=== PATIENT | male | born 1945 | race Caucasian/White ===

== ENCOUNTER 2016-09-28 19:38 | Emergency (ER) | payer MEDICARE ==
[~2016-09-28 19:38] MED LIST: MUCINEX1200 MG PO
== END 2016-09-28 21:03 | disposition short-term general hospital (02) ==
LOC: ED 19:38
DX: I21.4 Non-ST elevation (NSTEMI) myocardial infarction (principal); I50.9 Heart failure, unspecified; F17.210 Nicotine dependence, cigarettes, uncomplicated; Z79.82 Long term (current) use of aspirin
CPT/HCPCS: J1644; J2270; J2405

== ENCOUNTER 2016-10-30 14:59 | Outpatient (RCR) | payer MEDICARE ==
[2016-09-28 21:03] VITALS: BP 150/102
[2016-11-02] MEDS ORDERED: CLOPIDOGREL (13:25)
[2016-11-02] MEDS ORDERED: IPRATROPIUM BROM3 M1 IH (13:26)
[2016-11-02] MEDS ORDERED: ZESTRIL2.5 M1 PO (13:26)
[2016-11-02] MEDS ORDERED: PEPCID 20MG TAB20 MG PO (13:26)
[2016-11-02] MEDS ORDERED: METOPROLOL SUCC50 M2 PO (13:26)
[2016-11-02] MEDS ORDERED: ASPIRIN E.C. 8181 MG PO (13:26)
== END 2017-01-28 | disposition home or self-care (01) ==
LOC: CARDREHAB → EDSTATUS 15:05
DX: Z48.812 Encounter for surgical aftercare following surgery on the circulatory system (principal); I21.4 Non-ST elevation (NSTEMI) myocardial infarction; Z95.5 Presence of coronary angioplasty implant and graft

== ENCOUNTER 2016-11-02 13:14 | Emergency (ER) | payer MEDICARE ==
[2016-11-02] MEDS ORDERED: CLOPIDOGREL (13:25)
[2016-11-02] MEDS ORDERED: IPRATROPIUM BROM3 M1 IH (13:26)
[2016-11-02] MEDS ORDERED: ASPIRIN E.C. 8181 MG PO (13:26)
[2016-11-02] MEDS ORDERED: METOPROLOL SUCC50 M2 PO (13:26)
[2016-11-02] MEDS ORDERED: PEPCID 20MG TAB20 MG PO (13:26)
[2016-11-02] MEDS ORDERED: ZESTRIL2.5 M1 PO (13:26)
[2016-11-02 14:34] VITALS: BP 100/49
== END 2016-11-02 14:30 | disposition home or self-care (01) ==
LOC: ED 13:14
DX: I48.91 Unspecified atrial fibrillation (principal); I25.10 Atherosclerotic heart disease of native coronary artery without angina pectoris; Z91.14 Patient's other noncompliance with medication regimen; F17.210 Nicotine dependence, cigarettes, uncomplicated; E11.9 Type 2 diabetes mellitus without complications; I25.2 Old myocardial infarction; J44.9 Chronic obstructive pulmonary disease, unspecified; I50.9 Heart failure, unspecified

== ENCOUNTER 2017-02-01 08:00 | Outpatient (RCR) | payer MEDICARE ==
[~2017-02-01 08:00] MED LIST changes: +ASPIRIN E.C. 8181 MG PO; +CLOPIDOGREL; +IPRATROPIUM BROM3 M1 IH; +METOPROLOL SUCC50 M2 PO; +PEPCID 20MG TAB20 MG PO; +ZESTRIL2.5 M1 PO
== END 2017-05-02 | disposition home or self-care (01) ==
LOC: CARDREHAB
DX: Z48.812 Encounter for surgical aftercare following surgery on the circulatory system (principal); Z95.5 Presence of coronary angioplasty implant and graft

== ENCOUNTER → 2017-04-20 | Outpatient (CLI) | payer MEDICARE | LOC: RAD 10:35 | DX: M25.552 Pain in left hip (principal); M16.0 Bilateral primary osteoarthritis of hip; M47.9 Spondylosis, unspecified ==

== ENCOUNTER 2017-05-03 09:30 | Outpatient (RCR) | payer MEDICARE | END 2017-08-01 | disposition home or self-care (01) | LOC: CARDREHAB | DX: Z48.812 Encounter for surgical aftercare following surgery on the circulatory system (principal); Z95.5 Presence of coronary angioplasty implant and graft ==